=== PATIENT | female | born 1950 | race Caucasian/White ===

== ENCOUNTER → 2016-12-27 | Outpatient (CLI) | payer MEDICARE ==
--- NOTE | 2016-12-28 08:32 | MM ---
Reason for exam: screening (asymptomatic). Last mammogram was performed 1 year ago. History: Patient is postmenopausal and has history of other cancer at age 52. Family history of breast cancer in aunt. Took hormonal contraceptives for 14 years. Physical Findings: A clinical breast exam by your physician is recommended on an annual basis and results should be correlated with mammographic findings. MG 3D Screening Mammo W/Cad Bilateral CC and MLO view(s) were taken. Prior study comparison: December 24, 2015, bilateral MG 3d screening mammo w/cad. October 10, 2014, left breast MG work up mamm w CAD LT. There is chronic nodularity in the left breast. There is no discrete abnormality. ASSESSMENT: Benign, BI-RAD 2 RECOMMENDATION: Routine screening mammogram of both breasts in 1 year.
== END | disposition home or self-care (01) ==
LOC: RADMAMWWP 07:57
PROVIDERS: ATTEND Obstetrics & Gynecology
DX: Z12.31 Encounter for screening mammogram for malignant neoplasm of breast (principal)
CPT/HCPCS: 77063; G0202

== ENCOUNTER → 2018-01-02 | Outpatient (CLI) | payer MEDICARE ==
--- NOTE | 2018-01-02 18:03 | BD ---
EXAMINATION TYPE: MG DEXA axial skeleton. DATE OF EXAM: 01/02/2018 COMPARISON: 12/24/2015 CLINICAL HISTORY: 67-year-old female osteopenia Height: 65.5 IN Weight: 160 LBS FRAX RISK QUESTIONS: Alcohol (3 or more units per day): NO Family History (Parent hip fracture): NO Glucocorticoids (More than 3mos): NO (Ex: prednisone, prednisolone, methylprednisolone, dexamethasone, and hydrocortisone). History of Fracture in Adulthood: NO Secondary Osteoporosis: 1. Type 1 Diabetes: NO 2. Hyperthyroidism: NO 3. Menopause before 45: NO 4. Malnutrition: NO 5. Chronic liver disease: NO Rheumatoid Arthritis: NO Current Tobacco Use: NO RISK FACTORS HISTORY OF: Active: YES Postmenopausal woman: AGE 58 MEDICATIONS: Additional Medications: CALCIUM, VIT D, PRILOSEC, EXAM MEASUREMENTS: Bone mineral densitometry was performed using the [employer] System. Bone mineral density as measured about the Lumbar spine is: ----- L1-L4(G/cm2): 1.056 T Score Values are as follows: ----- L2: -0.9 ----- L3: -1.2 ----- L4: -1.1 ----- L1-L4: -1.0 Bone mineral density has: Decreased -0.2% since study of: 12/24/2015 Bone mineral density about the R hip (g/cm2): 0.899 Bone mineral density about the L hip (g/cm2): 0.906 T Score values are as follows: -----R Neck: -1.0 -----L Neck: -0.9 -----R Total: -0.2 -----L Total: -0.1 Bone mineral density has: Decreased -0.9% since study of: 12/24/2015 IMPRESSION: Osteopenia (T Score between -2.5 and -1 as noted by T score values There is slightly increased risk of fracture and the patient may be considered for treatment. Re-Screen 2-5 years. NOTE: T-SCORE=SD OF THE YOUNG ADULT MEAN.
--- NOTE | 2018-01-03 11:32 | MM ---
Reason for exam: screening (asymptomatic). Last mammogram was performed 1 year ago. History: Patient is postmenopausal and has history of other cancer at age 52. Family history of breast cancer in aunt. Took hormonal contraceptives for 14 years. Physical Findings: A clinical breast exam by your physician is recommended on an annual basis and results should be correlated with mammographic findings. MG 3D Screening Mammo W/Cad Bilateral CC and MLO view(s) were taken. Prior study comparison: December 27, 2016, bilateral MG 3d screening mammo w/cad. December 24, 2015, bilateral MG 3d screening mammo w/cad. There are scattered fibroglandular densities. There is stable chronic nodularity bilaterally. No significant changes when compared with prior studies. ASSESSMENT: Benign, BI-RAD 2 RECOMMENDATION: Routine screening mammogram of both breasts in 1 year.
== END | disposition home or self-care (01) ==
LOC: RADMAMWWP 07:29
PROVIDERS: ATTEND Obstetrics & Gynecology
DX: Z12.31 Encounter for screening mammogram for malignant neoplasm of breast (principal); M85.88 Other specified disorders of bone density and structure, other site; Z80.3 Family history of malignant neoplasm of breast
CPT/HCPCS: 77063; 77067; 77080

== ENCOUNTER → 2019-01-04 | Outpatient (CLI) | payer MEDICARE ==
--- NOTE | 2019-01-04 14:03 | MM ---
Reason for exam: screening (asymptomatic). Last mammogram was performed 1 year ago. History: Patient is postmenopausal and has history of other cancer at age 52. Family history of breast cancer in aunt. Took hormonal contraceptives for 14 years. Physical Findings: A clinical breast exam by your physician is recommended on an annual basis and results should be correlated with mammographic findings. MG 3D Screening Mammo W/Cad Bilateral CC and MLO view(s) were taken. Prior study comparison: January 02, 2018, bilateral MG 3d screening mammo w/cad. December 27, 2016, bilateral MG 3d screening mammo w/cad. The breast tissue is heterogeneously dense. This may lower the sensitivity of mammography. Focal asymmetry left lower inner quadrant, lobular in appearance, stable. No significant changes when compared with prior studies. ASSESSMENT: Benign, BI-RAD 2 RECOMMENDATION: Routine screening mammogram of both breasts in 1 year.
== END | disposition home or self-care (01) ==
LOC: RADMAMWWP 08:02
PROVIDERS: ATTEND Obstetrics & Gynecology
DX: Z12.31 Encounter for screening mammogram for malignant neoplasm of breast (principal)
CPT/HCPCS: 77063; 77067

== ENCOUNTER → 2020-05-21 | Outpatient (CLI) | payer MEDICARE ==
--- NOTE | 2020-05-23 08:38 | MM ---
Reason for exam: screening (asymptomatic). Last mammogram was performed 1 year and 4 months ago. History: Patient is postmenopausal and has history of other cancer at age 52. Family history of breast cancer in maternal aunt. Took hormonal contraceptives for 14 years. Physical Findings: A clinical breast exam by your physician is recommended on an annual basis and results should be correlated with mammographic findings. MG 3D Screening Mammo W/Cad Bilateral CC and MLO view(s) were taken. Prior study comparison: January 04, 2019, bilateral MG 3d screening mammo w/cad. January 02, 2018, bilateral MG 3d screening mammo w/cad. There are scattered fibroglandular densities. Global asymmery in the left lower inner quadrant is unchanged. No significant changes when compared with prior studies. ASSESSMENT: Benign, BI-RAD 2 RECOMMENDATION: Routine screening mammogram of both breasts in 1 year.
== END | disposition home or self-care (01) ==
LOC: RADMAMWWP 13:16
PROVIDERS: ATTEND Obstetrics & Gynecology
DX: Z12.31 Encounter for screening mammogram for malignant neoplasm of breast (principal); Z80.3 Family history of malignant neoplasm of breast
CPT/HCPCS: 77063; 77067

== ENCOUNTER → 2020-06-18 | Outpatient (CLI) | payer MEDICARE ==
--- NOTE | 2020-06-18 17:43 | BD ---
EXAMINATION TYPE: Axial Bone Density DATE OF EXAM: 06/18/2020 COMPARISON: 01.02.2018 CLINICAL HISTORY: 70 YR OLD FEMALE.....ICD-10 CODE: M89.9 DISORDER OF BONE Height: 64.4 Weight: 160 FRAX RISK QUESTIONS: NOTHING TO NOTE HERE RISK FACTORS HISTORY OF: Active: YES Postmenopausal woman: YES AT ABOUT 58 YRS OLD Hyperparathyroidism: NO Adrenal Insufficiency: NO MEDICATIONS: Additional Medications: REFLUX MEDS, CALCIUM Additional History: REFLUX EXAM MEASUREMENTS: Bone mineral densitometry was performed using the [employer] System. Bone mineral density as measured about the Lumbar spine is: ----- L1-L4(G/cm2): 1.075 T Score Values are as follows: ----- L1: -0.8 ----- L2: -0.7 ----- L3: -1.2 ----- L4: -0.9 ----- L1-L4: -0.9 Bone mineral density has: Increased 1.7% since study of: 01.02.2018 Bone mineral density about the R hip (g/cm2): 0.956 Bone mineral density about the L hip (g/cm2): 0.943 T Score values are as follows: -----R Neck: -1.2 -----L Neck: -1.3 -----R Total: -0.3 -----L Total: -0.5 Bone mineral density has: Decreased -3.5% since study of: 01.02.2018 FRAX%s: THERE IS A 10.1% CHANCE FOR A MAJOR OSTEOPOROTIC FX AND A 1.5% FOR HIP.....PROBABILITY FOR FX IN 10 YRS TIME IMPRESSION: Osteopenia (T Score between -2.5 and -1). There is slightly increased risk of fracture and the patient may be considered for treatment. Re-Screen 2-5 years. NOTE: T-SCORE=SD OF THE YOUNG ADULT MEAN.
== END | disposition home or self-care (01) ==
LOC: RADBDWWP 10:33
PROVIDERS: ATTEND Obstetrics & Gynecology
DX: M85.80 Other specified disorders of bone density and structure, unspecified site (principal)
CPT/HCPCS: 77080

== ENCOUNTER → 2021-05-22 | Outpatient (CLI) | payer MEDICARE ==
--- NOTE | 2021-05-27 14:36 | MM ---
Reason for exam: screening (asymptomatic). Last mammogram was performed 1 year ago. History: Patient is postmenopausal and has history of other cancer at age 52. Family history of breast cancer in maternal aunt. Took hormonal contraceptives for 14 years. Physical Findings: A clinical breast exam by your physician is recommended on an annual basis and results should be correlated with mammographic findings. MG 3D Screening Mammo W/Cad Bilateral CC and MLO view(s) were taken. Prior study comparison: May 21, 2020, bilateral MG 3d screening mammo w/cad. January 04, 2019, bilateral MG 3d screening mammo w/cad. There are scattered fibroglandular densities. There is chronic nodularity in the left lower inner quadrant. No significant changes when compared with prior studies. ASSESSMENT: Benign, BI-RAD 2 RECOMMENDATION: Routine screening mammogram of both breasts in 1 year.
== END | disposition home or self-care (01) ==
LOC: RADMAMWWP 11:12
PROVIDERS: ATTEND Obstetrics & Gynecology
DX: Z12.31 Encounter for screening mammogram for malignant neoplasm of breast (principal)
CPT/HCPCS: 77063; 77067

== ENCOUNTER → 2022-06-17 | Outpatient (CLI) | payer MEDICARE ==
--- NOTE | 2022-06-18 16:49 | MM ---
Reason for Exam: Screening (asymptomatic). Last screening mammogram was performed 12 month(s) ago. Patient History: Menarche at age 12. First Full-Term at age 21. Postmenopausal. Other cancer, age 52. Patient used Hormonal Contraceptives for 14 years. Maternal aunt had breast cancer. Risk Values: Ambar 5 year model risk: 1.4%. NCI Lifetime model risk: 3.3%. Prior Study Comparison: 01/04/2019 Bilateral Screening Mammogram, [facility]. 05/21/2020 Bilateral Screening Mammogram, [facility]. 05/22/2021 Bilateral Screening Mammogram, [facility]. Tissue Density: There are scattered fibroglandular densities. Findings: Analyzed By CAD. There is a focal asymmetry in the lower inner aspect left mid breast, stable. No suspicious groups of microcalcifications, spiculated or lobular masses, architectural distortion or other secondary signs of malignancy are mammographically apparent. Overall Assessment: Benign, BI-RAD 2 Management: Screening Mammogram of both breasts in 1 year. A negative mammogram report should not preclude additional follow up of suspicious palpable abnormalities. Patient should continue monthly self breast exam. A clinical breast exam by your physician is recommended on an annual basis and results should be correlated with mammographic findings. Electronically signed and approved by: Jero Burgos D.O. Radiologis
== END | disposition home or self-care (01) ==
LOC: RADMAMWWP 07:20
PROVIDERS: ATTEND Obstetrics & Gynecology
DX: Z12.31 Encounter for screening mammogram for malignant neoplasm of breast (principal)
CPT/HCPCS: 77063; 77067

== ENCOUNTER → 2023-06-20 | Outpatient (CLI) | payer MEDICARE ==
--- NOTE | 2023-06-21 08:38 | MM ---
Reason for Exam: Screening (asymptomatic). Last screening mammogram was performed 12 month(s) ago. Patient History: Menarche at age 12. First Full-Term at age 21. Postmenopausal. Patient used Hormonal Contraceptives for 14 years. Maternal aunt had breast cancer. Risk Values: Ambar 5 year model risk: 1.4%. NCI Lifetime model risk: 3.1%. Prior Study Comparison: 05/21/2020 Bilateral Screening Mammogram, [facility]. 05/22/2021 Bilateral Screening Mammogram, [facility]. 06/17/2022 Bilateral MG 3D screening mammo w/cad, [facility]. Tissue Density: There are scattered fibroglandular densities. Findings: Analyzed By CAD. There is no suspicious group of microcalcifications or new suspicious mass in either breast. Chronic nodularity within the left breast. Overall Assessment: Benign, BI-RAD 2 Management: Screening Mammogram of both breasts in 1 year. A clinical breast exam by your physician is recommended on an annual basis and results should be correlated with mammographic findings. Note on Ambar scores and lifetime risk: 1. A Ambar score greater than 3% is considered moderate risk. If this is the case, consider specialist referral to assess eligibility for a risk reducing agent. If overall lifetime risk for the development of breast cancer is 20% or higher, the patient may qualify for future screening with alternating mammogram and breast MRI. Electronically signed and approved by: Manjinder Vazquez D.O.
--- NOTE | 2023-06-21 10:30 | BD ---
EXAMINATION TYPE: Axial Bone Density DATE OF EXAM: 06/20/2023 CLINICAL HISTORY: 73 years old Female. ICD-10 CODE: M85.88 OSTEOPENIA Height: 65.25 Weight: 162.5 FRAX RISK QUESTIONS: Alcohol (3 or more units per day): no Family History (Parent hip fracture): no Glucocorticoids (More than 3mos): no History of Fracture in Adulthood: no Secondary Osteoporosis: 1. Type 1 Diabetes: no 2. Hyperthyroidism: no 3. Menopause before 45: no 4. Malnutrition: no 5. Chronic liver disease: no Rheumatoid Arthritis: no Current Tobacco Use: no RISK FACTORS HISTORY OF: Hip Fracture (Right/Left): no Spine Fracture: no History of Wrist Fracture: no Surgery to Spine/Hip(right/left)/Wrist (right/left): no Family History of Osteoporosis: no Active: no Diet low in dairy products/other sources of calcium: no Postmenopausal woman: yes Take estrogen and/or progesterone medications: no Lost more than 2 inches in height since high school: no Frequent falls: no Poor Health: no Hyperparathyroidism: no Adrenal Insufficiency: no MEDICATIONS: Prednisone or other steroids: no Thyroid Medications: no Osteoporosis Medications: no Additional Medications: Reflux med, calcium Additional History: EXAM MEASUREMENTS: Bone mineral densitometry was performed using the [employer] System. Bone mineral density as measured about the Lumbar spine is: ----- L1-L4(G/cm2): 1.029 T Score Values are as follows: ----- L1: -1.7 ----- L2: -1.3 ----- L3: -1.1 ----- L4: -1.2 ----- L1-L4: -1.3 Z Score Values are as follows: ----- L1: -0.2 ----- L2: 0.2 ----- L3: 0.4 ----- L4: 0.3 ----- L1-L4: 0.2 Bone mineral density has: decreased -4.3 % since study of: Bone mineral density about the R hip (g/cm2): 0.993 Bone mineral density about the L hip (g/cm2): 0.940 T Score values are as follows: -----R Neck: -1.1 -----L Neck: -1.3 -----R Total: -0.1 -----L Total: -0.5 Z Score values are as follows: -----R Neck: 0.6 -----L Neck: 0.5 -----R Total: 1.4 -----L Total: 1.0 Bone mineral density has: increased 1.2 % since study of: 06/18/2020 FRAX%s: The graph provided illustrates a 10.6% chance for a major osteoporotic fx and a 1.9% chance f or the hips probability for fx in 10 years time. IMPRESSION: Osteopenia (T Score between -2.5 and -1). There is slightly increased risk of fracture and the patient may be considered for treatment. Re-Screen 2-5 years. NOTE: T-SCORE=SD OF THE YOUNG ADULT MEAN.
== END | disposition home or self-care (01) ==
LOC: RADMAMWWP 09:34
PROVIDERS: ATTEND Obstetrics & Gynecology
DX: Z12.31 Encounter for screening mammogram for malignant neoplasm of breast (principal); M85.89 Other specified disorders of bone density and structure, multiple sites; Z78.0 Asymptomatic menopausal state; Z80.3 Family history of malignant neoplasm of breast
CPT/HCPCS: 77063; 77067; 77080